=== PATIENT | female | born 1975 | race Caucasian/White ===

== ENCOUNTER 2021-09-28 09:07 | Outpatient (CLI) | payer OTHER | END 2021-09-28 09:08 | disposition home or self-care (01) | LOC: BICMAMMO 09:07 | PROVIDERS: ATTEND Internal Medicine | DX: Z12.31 Encounter for screening mammogram for malignant neoplasm of breast (principal) | CPT/HCPCS: 77063; 77067 ==

== ENCOUNTER 2023-06-14 08:12 | Outpatient (CLI) | payer OTHER | END 2023-06-14 08:13 | disposition home or self-care (01) | LOC: BICMAMMO 08:12 | PROVIDERS: ATTEND Internal Medicine | DX: Z12.31 Encounter for screening mammogram for malignant neoplasm of breast (principal); N64.89 Other specified disorders of breast | CPT/HCPCS: 77063; 77067 ==

== ENCOUNTER 2023-06-21 08:57 | Outpatient (CLI) | payer OTHER | END 2023-06-21 08:58 | disposition home or self-care (01) | LOC: BICMAMMO 08:57 | PROVIDERS: ATTEND Internal Medicine | DX: N64.89 Other specified disorders of breast (principal) | CPT/HCPCS: G0279 ==

== ENCOUNTER 2023-08-28 07:34 | Outpatient (CLI) | payer OTHER | END 2023-08-28 07:35 | disposition home or self-care (01) | LOC: BICMRI 07:34 | DX: M79.672 Pain in left foot (principal); M19.072 Primary osteoarthritis, left ankle and foot | CPT/HCPCS: A9579 ==

== ENCOUNTER 2023-09-13 09:16 | Outpatient (CLI) | payer OTHER | END 2023-09-13 09:17 | disposition home or self-care (01) | LOC: BICMAMMO 09:16 | PROVIDERS: ATTEND Internal Medicine | DX: M81.0 Age-related osteoporosis without current pathological fracture (principal); M85.88 Other specified disorders of bone density and structure, other site | CPT/HCPCS: 77080 ==

== ENCOUNTER 2024-12-10 08:56 | Outpatient (CLI) | payer OTHER | END 2024-12-10 08:57 | disposition home or self-care (01) | LOC: BICMAMMO 08:56 | PROVIDERS: ATTEND Internal Medicine | DX: Z12.31 Encounter for screening mammogram for malignant neoplasm of breast (principal) | CPT/HCPCS: 77063; 77067 ==